=== PATIENT | male | born 1950 | race Caucasian/White ===

== ENCOUNTER → 2019-06-02 13:31 | Outpatient (BNVA) | payer OTHER, SELFPAY | PROVIDERS: Family Provider Internal Medicine; PCP Internal Medicine; Visit Provider Anesthesiology | DX: M48.061 Spinal stenosis, lumbar region without neurogenic claudication (principal); M79.652 Pain in left thigh; Z79.891 Long term (current) use of opiate analgesic | CPT/HCPCS: 99214 ==

== ENCOUNTER → 2019-09-30 10:08 | Outpatient (BNVA) | payer OTHER, SELFPAY | PROVIDERS: Family Provider Internal Medicine; PCP Internal Medicine; Visit Provider Nurse Practitioner | DX: M48.061 Spinal stenosis, lumbar region without neurogenic claudication (principal); Z79.891 Long term (current) use of opiate analgesic | CPT/HCPCS: 99213 ==

== ENCOUNTER → 2019-12-14 09:27 | Outpatient (BNVA) | payer OTHER, SELFPAY | PROVIDERS: Family Provider Internal Medicine; PCP Internal Medicine; Visit Provider Anesthesiology | DX: M54.42 Lumbago with sciatica, left side (principal); M48.061 Spinal stenosis, lumbar region without neurogenic claudication; M54.9 Dorsalgia, unspecified; Z79.891 Long term (current) use of opiate analgesic | CPT/HCPCS: 99213; 99214 ==

== ENCOUNTER → 2020-02-08 08:58 | Outpatient (BNVA) | payer OTHER, SELFPAY | PROVIDERS: Family Provider Internal Medicine; PCP Family Medicine; Visit Provider Anesthesiology | DX: M48.061 Spinal stenosis, lumbar region without neurogenic claudication (principal); M54.9 Dorsalgia, unspecified; Z79.891 Long term (current) use of opiate analgesic | CPT/HCPCS: 99212; 99214 ==

== ENCOUNTER → 2020-04-05 14:04 | Outpatient (BNVA) | payer OTHER, SELFPAY | PROVIDERS: Family Provider Internal Medicine; PCP Family Medicine; Visit Provider Anesthesiology | DX: M48.061 Spinal stenosis, lumbar region without neurogenic claudication (principal); M54.9 Dorsalgia, unspecified; Z79.891 Long term (current) use of opiate analgesic | CPT/HCPCS: 99212; 99214 ==

== ENCOUNTER → 2020-06-20 12:46 | Outpatient (BNVA) | payer OTHER, SELFPAY | PROVIDERS: Family Provider Internal Medicine; PCP Family Medicine; Visit Provider Nurse Practitioner | DX: M54.42 Lumbago with sciatica, left side (principal); M48.061 Spinal stenosis, lumbar region without neurogenic claudication; M54.9 Dorsalgia, unspecified; Z79.891 Long term (current) use of opiate analgesic | CPT/HCPCS: 99213 ==

== ENCOUNTER → 2020-08-30 09:32 | Outpatient (BNVA) | payer OTHER, SELFPAY | PROVIDERS: Family Provider Internal Medicine; PCP Family Medicine; Visit Provider Nurse Practitioner | DX: M48.061 Spinal stenosis, lumbar region without neurogenic claudication (principal); M54.9 Dorsalgia, unspecified; Z79.891 Long term (current) use of opiate analgesic | CPT/HCPCS: 99212; 99213 ==

== ENCOUNTER → 2020-10-19 09:43 | Outpatient (BNVA) | payer OTHER, SELFPAY | PROVIDERS: Family Provider Internal Medicine; PCP Family Medicine; Visit Provider Anesthesiology | DX: G89.29 Other chronic pain (principal); M54.42 Lumbago with sciatica, left side; M48.061 Spinal stenosis, lumbar region without neurogenic claudication; M54.9 Dorsalgia, unspecified; Z87.891 Personal history of nicotine dependence; Z79.891 Long term (current) use of opiate analgesic | CPT/HCPCS: 99213 ==

== ENCOUNTER → 2020-12-07 09:35 | Outpatient (BNVA) | payer OTHER, SELFPAY | PROVIDERS: Family Provider Internal Medicine; PCP Family Medicine; Visit Provider Anesthesiology | DX: G89.29 Other chronic pain (principal); M48.061 Spinal stenosis, lumbar region without neurogenic claudication; Z79.891 Long term (current) use of opiate analgesic | CPT/HCPCS: 99213 ==

== ENCOUNTER → 2021-02-15 10:12 | Outpatient (BNVA) | payer OTHER, SELFPAY | PROVIDERS: Family Provider Internal Medicine; PCP Family Medicine; Visit Provider Anesthesiology | DX: G89.29 Other chronic pain (principal); M48.061 Spinal stenosis, lumbar region without neurogenic claudication; F17.210 Nicotine dependence, cigarettes, uncomplicated; Z79.891 Long term (current) use of opiate analgesic | CPT/HCPCS: 99212; 99213 ==

== ENCOUNTER → 2021-04-10 10:12 | Outpatient (BNVA) | payer OTHER, SELFPAY | PROVIDERS: Family Provider Internal Medicine; PCP Family Medicine; Visit Provider Anesthesiology | DX: G89.29 Other chronic pain (principal); M48.061 Spinal stenosis, lumbar region without neurogenic claudication; Z87.891 Personal history of nicotine dependence; Z79.891 Long term (current) use of opiate analgesic | CPT/HCPCS: 99213 ==

== ENCOUNTER 2021-11-11 05:47 | Day surgery (SDC) | payer OTHER, SELFPAY ==
[2021-11-08 10:05] VITALS: BMI 35.2
[2021-11-11 06:24] VITALS: BP 153/79; PULSE 85; RESP 18; TEMP 37.1; O2SAT 95
[2021-11-11] MEDS: sodium chloride 0.9% 1,000 ML 30 ML IV (06:26)
--- NOTE | 2021-11-11 06:49 | ANES.PREANE2 ---
Documented by User: Lizett Caban CRNA 11/11/21 06:53 Pre-Anesthetic Assessment Height/Weight: Height 1.83 m Weight 117.934 kg Temp Pulse Resp BP Pulse Ox 98.7 F 85 18 153/79 95 11/11/21 06:24 11/11/21 06:24 11/11/21 06:24 11/11/21 06:24 11/11/21 06:24 Preop Diagnosis: BE Operation Date: 11/11/21 07:30 Proposed Procedures p EGD 98450,K22.70(Not Applicable) - Damien Martinez MD Familial anesthetic complications: none Was Beta Ailyn taken within 24 hours: Yes Last intake: Intake Last Liquid Date 11/10/21 Last Liquid Time 21:00 Last Solid Date 11/10/21 Last Solid Time 19:00 Social Tobacco 2 packs per week pack(s) per day Airway Submandibular: within normal limits Cervical ROM: within normal limits Mallampati: Class I Dentition: false Pulmonary Chronic Obstructive Pulmonary Disease CV/HEM Hypertension None reported Hepatic None reported GI Gastroesophageal Reflux Disease Metabolic Morbid Obesity and None reported Musc/skel Lower Back Pain Neuropsych None reported Anesthetic Plan ASA status: 3 Anesthesia: MAC Medications/Allergies Home Medications Medication Instructions Recorded Confirmed Last Taken Type lisinopril 40 mg tablet 20 mg PO DAILY tab 06/02/19 11/11/21 11/11/21 History metoprolol tartrate 50 mg tablet 25 mg PO BID tab 06/02/19 11/11/21 11/11/21 History multivit with minerals-folic 1 tab PO DAILY 06/02/19 11/11/21 11/10/21 History acid-lycopene 0.4 mg-600 mcg tablet (Men's Daily Multivitamin-Mineral) nifedipine 60 mg tablet,extended 60 mg PO DAILY 06/02/19 11/11/21 11/10/21 History release omega-3 fatty acids 1,000 mg 1,000 mg PO DAILY 06/02/19 11/11/21 11/10/21 History capsule (Fish Oil Concentrate) pantoprazole 40 mg tablet,delayed 40 mg PO DAILY 12/14/19 11/11/21 11/10/21 History release hydrocodone 10 mg-acetaminophen 1 tab PO .6 times daily PRN 30 04/10/21 11/11/21 11/11/21 Rx 325 mg tablet Days #180 tab trazodone 100 mg tablet 100 mg PO .HS tab 04/10/21 11/11/21 11/10/21 History naloxone 4 mg/actuation nasal spray 1 spray INTRANASAL Q2M 10/16/21 11/11/21 Unknown History testosterone 20.25 mg/1.25 gram 4 pump TOPICAL DAILY g 10/16/21 11/11/21 11/10/21 History (1.62 %) transdermal gel pump Allergies Allergy/AdvReac Type Severity Reaction Status Date / Time garlic AdvReac Unknown HEADACHE Verified 11/11/21 06:09 Current Medications Generic Name Dose Route Start Last Admin Trade Name Freq PRN Reason Stop Dose Admin Sodium Chloride 1,000 mls @ 30 mls/hr 11/11/21 06:00 11/11/21 06:26 Sodium Chloride 0.9% IV 11/12/21 05:59 30 mls/hr .Q24H AISHA Administration PFSH Anesthesia Medical History (Updated 10/31/21 @ 11:01 by Damien Martinez MD) Barretts esophagus Chronic low back pain Cigarette smoker one half pack a day or less Encounter for long-term use of opiate analgesic Foraminal stenosis of lumbar region Gastroesophageal reflux disease Opioid contract exists Surgical History H/O circumcision History of appendectomy History of carpal tunnel surgery of right wrist Family History Other Aneurysm CAD (coronary artery disease) Diabetes Denies family history of Anesthesia complication Bleeding disorder Social History Smoking and tobacco status: current every day smoker Second hand smoke exposure: No Alcohol intake: never History of recent travel: No Data Anesthesia Cardiac Studies: No Data to Display
--- NOTE | 2021-11-11 07:14 | W.PM.OPSFHP ---
Same Day Surgery H&P Indication for Procedure/HPI DATE OF PROCEDURE: November 11, 2021 CHIEF COMPLAINT/INDICATIONFOR SURGICAL PROCEDURE: History of Vazquez's esophagus PREOP DIAGNOSIS: BE PLANNED PROCEDURE: Operation Date: 11/11/21 07:30 Proposed Procedures p EGD 32180,K22.70(Not Applicable) - Damien Martinez MD Medications/Allergies* Home Medications Medication Instructions Recorded Confirmed Type lisinopril 40 mg tablet 20 mg PO DAILY tab 06/02/19 11/11/21 History metoprolol tartrate 50 mg tablet 25 mg PO BID tab 06/02/19 11/11/21 History multivit with minerals-folic 1 tab PO DAILY 06/02/19 11/11/21 History acid-lycopene 0.4 mg-600 mcg tablet (Men's Daily Multivitamin-Mineral) nifedipine 60 mg tablet,extended 60 mg PO DAILY 06/02/19 11/11/21 History release omega-3 fatty acids 1,000 mg 1,000 mg PO DAILY 06/02/19 11/11/21 History capsule (Fish Oil Concentrate) pantoprazole 40 mg tablet,delayed 40 mg PO DAILY 12/14/19 11/11/21 History release trazodone 100 mg tablet 100 mg PO .HS tab 04/10/21 11/11/21 History naloxone 4 mg/actuation nasal spray 1 spray INTRANASAL Q2M 10/16/21 11/11/21 History testosterone 20.25 mg/1.25 gram 4 pump TOPICAL DAILY g 10/16/21 11/11/21 History (1.62 %) transdermal gel pump Allergies/Adverse Reactions Allergy/AdvReac Type Severity Reaction Status Date / Time garlic AdvReac Unknown HEADACHE Verified 11/11/21 06:09 Current Medications: Generic Name Dose Route Start Last Admin Trade Name Freq PRN Reason Stop Dose Admin Sodium Chloride 1,000 mls @ 30 mls/hr 11/11/21 06:00 11/11/21 06:26 Sodium Chloride 0.9% IV 11/12/21 05:59 30 mls/hr .Q24H AISHA Administration Pertinent History/Comorbid Conditions* Medical History (Updated 10/31/21 @ 11:01 by Damien Martinez MD) Barretts esophagus Chronic low back pain Cigarette smoker one half pack a day or less Encounter for long-term use of opiate analgesic Foraminal stenosis of lumbar region Gastroesophageal reflux disease Opioid contract exists Surgical History (Updated 06/02/19 @ 14:08 by Keenan Pham MD) H/O circumcision History of appendectomy History of carpal tunnel surgery of right wrist Family History (Updated 06/02/19 @ 13:56 by Ketty Schroeder LPN) Diabetes CAD (coronary artery disease) Aneurysm Denies family history of Anesthesia complication Bleeding disorder Social History Smoking and tobacco status: current every day smoker Second hand smoke exposure: No Alcohol intake: never History of recent travel: No Pertinent Exam Findings alert, oriented x 3, clear to auscultation bilaterally, regular rate & rhythm, operative site marked and procedure specific exam findings Recommendations Surgery/Procedure today Coding Level of Care Code Acute Cargo Trimmer for Rodney Sen
[2021-11-11 07:54] VITALS: BP 160/93; PULSE 84; RESP 18; TEMP 36.7; O2SAT 92
[2021-11-11 08:03] VITALS: BP 166/98; PULSE 88; RESP 18; O2SAT 94
--- NOTE | 2021-11-11 12:56 | ANE.PACU2 ---
Inpatient post-anesthesia follow up: Airway intact: Yes Vital signs: Temperature 98.1 F Pulse Rate 88 Respiratory Rate 18 Blood Pressure 166/98 Pulse Oximetry 94 Oxygen Delivery Me thod Room Air Oxygen Flow Rate 4 Fraction of Inspir ed Oxygen Hydration adequate: Yes Nausea and vomiting: No Pain level: 1 Mental status: Baseline
[2021-11-12 10:43] LABS: H. Pylori / CLO Test Negative
== END 2021-11-11 08:10 | disposition home or self-care (01) ==
PROVIDERS: PCP Family Medicine; Visit Provider Internal Medicine
PROC: 0DJ08ZZ Inspection of Upper Intestinal Tract, Via Natural or Artificial Opening Endoscopic (ICD-10-PCS; CPT 43235; principal; 2021-11-11 07:30)
DX: K22.70 Barrett's esophagus without dysplasia (principal); K20.90 Esophagitis, unspecified without bleeding; J44.9 Chronic obstructive pulmonary disease, unspecified; I10 Essential (primary) hypertension; K21.9 Gastro-esophageal reflux disease without esophagitis; E66.01 Morbid (severe) obesity due to excess calories; Z68.35 Body mass index [BMI] 35.0-35.9, adult; F17.210 Nicotine dependence, cigarettes, uncomplicated
CPT/HCPCS: 43239; 87077; 88305; J2704; J7030

== ENCOUNTER → 2024-07-21 10:05 | Outpatient (BNVA) | payer OTHER, SELFPAY | PROVIDERS: PCP Family Medicine; Visit Provider Orthopaedic Surgery | DX: M54.9 Dorsalgia, unspecified (principal) | CPT/HCPCS: 36415; 72072; 72110; 80053; 81003; 85025; 99204 ==

== ENCOUNTER → 2024-08-12 09:18 | Outpatient (BNVA) | payer OTHER, SELFPAY | PROVIDERS: PCP Family Medicine; Visit Provider Family Medicine | DX: Z01.818 Encounter for other preprocedural examination (principal); R93.1 Abnormal findings on diagnostic imaging of heart and coronary circulation | CPT/HCPCS: 93005 ==

== ENCOUNTER 2024-08-22 07:46 | Day surgery (SDC) | payer OTHER, SELFPAY ==
[2024-08-22] VITALS (13 sets, daily range): BP systolic 140–167; BP diastolic 68–89; PULSE 68–87; RESP 15–20; TEMP 36.4–36.7; O2SAT 89–99; BMI 4647.6
[2024-08-22] MEDS: sodium chloride 0.9% 1,000 ML 30 ML IV (08:38)
[2024-08-22 09:02] LABS: Glucose Point of Care 135 mg/dL (70-110)
--- NOTE | 2024-08-22 09:20 | ANES.PREANE2 ---
Pre-Anesthetic Assessment Height/Weight: Height 6 in Weight 238 lb Temp Pulse Resp BP Pulse Ox O2 Del Method 97.7 F 73 18 146/73 96 Room Air 08/22/24 08:14 08/22/24 08:14 08/22/24 08:14 08/22/24 08:14 08/22/24 08:14 08/22/24 08:21 Preop Diagnosis: Lumbar stenosis with neurogenic claudication Operation Date: 08/22/24 09:40 Proposed Procedures p Implantation of Neurostimulator Paddle(Not Applicable) - Torrey Fernandez DO s Insertion Neurostimulator Pulse Generato(Not Applicable) - Torrey Fernandez DO Was Beta Ailyn taken within 24 hours: Yes Was Clonidine taken within 24 hours: N/A Last intake: Intake Last Liquid Date 08/21/24 Last Liquid Time 22:00 Last Solid Date 08/21/24 Last Solid Time 20:00 Social Tobacco and No alcohol Exam alert, oriented x 3 and regular rate & rhythm Decreased breath sounds bilaterally Airway Submandibular: within normal limits Cervical ROM: within normal limits Mallampati: Class II Dentition: false Anesthetic Plan ASA status: 3 Anesthesia: General Other: No prior issues with anesthesia NPO since yesterday evening History of hypertension on lisinopril and metoprolol Type 2 diabetes. BS 135 today Recent labs reviewed and acceptable for procedure Patient is taking 6, hydrocodone 10?3 25 daily for chronic pain Plan for general anesthesia Medications/Allergies Home Medications ?Medication ?Instructions ?Recorded ?Confirmed ?Last Taken ?Type lisinopril 40 mg tablet 20 mg PO DAILY 06/02/19 08/22/24 08/21/24 History metoprolol tartrate 50 mg tablet 25 mg PO BID 06/02/19 08/22/24 08/22/24 History multivit with minerals-folic 1 tab PO DAILY 06/02/19 08/22/24 08/18/24 History acid-lycopene 0.4 mg-600 mcg tablet (Men's Daily Multivitamin-Mineral) nifedipine 60 mg tablet,extended 60 mg PO DAILY 06/02/19 08/22/24 08/21/24 History release omega-3 fatty acids 1,000 mg 1,000 mg PO DAILY 06/02/19 08/22/24 08/12/24 History capsule (Fish Oil Concentrate) hydrocodone 10 mg-acetaminophen 1 tab PO .6 times daily PRN pain 12/22/21 05/05/25 05/04/25 Rx 325 mg tablet 30 days #180 tabs naloxone 4 mg/actuation nasal spray 1 spray intranasal Q2M 10/16/21 08/22/24 Unknown History testosterone 4 pump topical DAILY 10/16/21 08/22/24 08/18/24 History pantoprazole 40 mg tablet,delayed 40 mg PO DAILY #90 tabs 02/19/22 08/22/24 08/21/24 Rx release empagliflozin 25 mg tablet 25 mg PO DAILY 08/12/24 08/22/24 08/12/24 History (Jardiance) Allergies Allergy/AdvReac Type Severity Reaction Status Date / Time garlic AdvReac Unknown HEADACHE Verified 08/22/24 08:12 Current Medications Generic Name Dose Route Start Last Admin Trade Name Freq PRN Reason Stop Dose Admin Sodium Chloride 1,000 mls @ 30 mls/hr 08/22/24 08:00 08/22/24 08:38 Sodium Chloride 0.9% IV 08/23/24 07:59 30 mls/hr .Q24H AISHA Administration PFSH Anesthesia Medical History Gastroesophageal reflux disease Barretts esophagus Cigarette smoker one half pack a day or less Chronic low back pain Opioid contract exists Encounter for long-term use of opiate analgesic Foraminal stenosis of lumbar region Surgical History History of carpal tunnel surgery of right wrist History of appendectomy H/O circumcision Family History Other Aneurysm CAD (coronary artery disease) Diabetes Denies family history of Anesthesia complication Bleeding disorder Social History Smoking and tobacco/nicotine status: current every day tobacco/nicotine user Second hand smoke exposure: No Alcohol intake: never Substance/Drug Use: never
[2024-08-22] MEDS: ceFAZolin 2,000 mg SDV 2000 MG IVP (10:42)
[2024-08-22] MEDS: lidocaine-epi 1% 20 mL INJ INJECTION (11:11)
[2024-08-22] MEDS: vancomycin 1,000 MG SDV 1000 MG XX (11:15)
--- NOTE | 2024-08-22 12:07 | PM.OP ---
Operative Report Date of procedure: August 22, 2024 Pre-op diagnosis: Lumbar stenosis with neurogenic claudication Post-op diagnosis: same Procedure done: Patient of neurostimulator paddle open Placement of neurostimulator generator Surgeon: Torrey Fernandez DO Estimated blood loss (mL): 15 Procedure: Patient of neurostimulator paddle open Placement of neurostimulator generator Patient brought the operative suite after undergoing anesthesia was placed in the prone position. All areas impingement well-padded. Patient's prepped draped also fashion. Skin incision was made over the T9-10 disc base. Subperiosteal dissection was made out to the transverse processes at this level. Once this level was identified then is confirmed under C-arm guidance. Rongeur was used to take down the interspinous ligament and the laminectomy was performed at T9. The ligament flavum was taken down and removed in order to make room for the neurostimulator paddle. Trial was passed up easily. And then the stimulator paddle was placed up to the vertebral body of 8. This confirmed under AP and lateral fluoroscopy. The wires were then sutured into the spinous process of T10. Extension was brought to placing the generator battery. The skin incision is made over the right flank. Pocket was made. The wire passer was then passed from the battery pouch to the location of where the wires were tunneled through the skin and brought back to the location of the battery. A plug in the battery felt to be good charge once there is also plug-in then the battery was then placed into the pocket that was created. Wounds were closed with 0 Vicryl 2-0 Vicryl Monocryl suture. Sterile dressings were applied patient transferred to the PACU in stable condition.
[2024-08-22] MEDS: fentaNYL 50 mcg/mL INJ 2mL IVP ×2 (12:22→12:32)
--- NOTE | 2024-08-22 13:37 | ANE.PACU2 ---
Inpatient post-anesthesia follow up: Airway intact: Yes Vital signs: Temperature 97.8 F Pulse Rate 68 Respiratory Rate 18 Blood Pressure 160/68 Pulse Oximetry 94 Oxygen Delivery Me thod Room Air Oxygen Flow Rate 10 Fraction of Inspir ed Oxygen Hydration adequate: Yes Nausea and vomiting: No Pain level: 3 Mental status: Baseline
--- NOTE | 2024-08-22 14:41 | XR_ITS ---
WS: [id number] XR thoracic spine 2V [id number] REASON FOR EXAM: OR PIC, NEUROSTIMULATOR FINDINGS: Placement of dorsal column stimulator in the lower thoracic spine. Entry at T10. Tip of the electrodes at T8. XR/XR thoracic spine 2V [id number] IMPRESSION: Dorsal column stimulator placement as above.
== END 2024-08-22 13:40 | disposition home or self-care (01) ==
PROVIDERS: PCP Family Medicine; Visit Provider Orthopaedic Surgery
PROC: (CPT 63655; principal; 2024-08-22 09:20)
PROC: (CPT 63685; 2024-08-22 09:20)
DX: M48.062 Spinal stenosis, lumbar region with neurogenic claudication (principal); G89.29 Other chronic pain; I10 Essential (primary) hypertension; Z79.899 Other long term (current) drug therapy; E11.9 Type 2 diabetes mellitus without complications; K21.9 Gastro-esophageal reflux disease without esophagitis; F17.210 Nicotine dependence, cigarettes, uncomplicated; Z79.891 Long term (current) use of opiate analgesic; Z79.84 Long term (current) use of oral hypoglycemic drugs; Z79.890 Hormone replacement therapy
CPT/HCPCS: 63685; 63655; 36416; 72070; 76000; 82962; C1778; C1820; J0330; J0690; J1100; J1171; J1885; J2405; J2704; J2710; J3010; J3370; J3490; J7030; J9999

== ENCOUNTER → 2024-09-06 11:10 | Outpatient (BNVA) | payer OTHER, SELFPAY | PROVIDERS: PCP Family Medicine; Visit Provider Orthopaedic Surgery | DX: Z48.89 Encounter for other specified surgical aftercare (principal) | CPT/HCPCS: 99024 ==